=== PATIENT | female | born 1950 | race Caucasian/White ===

== ENCOUNTER 2019-06-15 16:59 | Emergency (ER) | payer OTHER ==
[~2019-06-15] VITALS: Ht 152.4 cm; Wt 66.2 kg
[2019-06-15 17:05] VITALS: Ht 152.4 cm; Wt 66.2 kg
[2019-06-15] MEDS ORDERED: MIDODRINE HCL2.5 M1 PO (17:38)
[2019-06-15] MEDS ORDERED: ELIQUIS5 MG PO (17:38)
[2019-06-15] MEDS ORDERED: LIPITOR40 MG PO (17:39)
[2019-06-15] MEDS ORDERED: LOPRESSOR50 M1 PO (17:39)
[2019-06-15] MEDS ORDERED: ENTRESTO1 TA2 PO (17:40)
[2019-06-15 18:58] LABS: BASOPHIL % 1.3 % (0-2)
[2019-06-15 19:09] LABS: PLATELET COUNT 97 x10^3mcL (130-400)
[2019-06-15 19:10] LABS: BILIRUBIN TOTAL 3.48 mg/dL (0.20-1.00); CALCIUM 7.5 mg/dL (8.5-10.1); CARBON DIOXIDE 30.6 mmol/L (21-32); POTASSIUM SERUM 4.1 mmol/L (3.5-5.1); TOTAL PROTEIN, SERUM 8.2 g/dL (6.4-8.2)
[2019-06-15 19:22] LABS: ALBUMIN 2.8 g/dL (3.4-5.0)
[2019-06-15 19:23] LABS: CREATININE SERUM 5.2 mg/dL (0.6-1.0)
[2019-06-15 20:35] VITALS: BP 107/79
== END 2019-06-15 20:35 | disposition home or self-care (01) ==
LOC: ED 16:59
PROVIDERS: Emergency Medicine
DX: S31.113A Laceration without foreign body of abdominal wall, right lower quadrant without penetration into peritoneal cavity, initial encounter (principal); I12.0 Hypertensive chronic kidney disease with stage 5 chronic kidney disease or end stage renal disease; N18.6 End stage renal disease; I50.9 Heart failure, unspecified; Z99.2 Dependence on renal dialysis; X58.XXXA Exposure to other specified factors, initial encounter; Y93.89 Activity, other specified; Y92.89 Other specified places as the place of occurrence of the external cause; Y99.8 Other external cause status
CPT/HCPCS: 36415; J2001

== ENCOUNTER 2019-06-21 11:27 | Emergency (ER) | payer OTHER ==
[~2019-06-21 11:27] MED LIST: ELIQUIS5 MG PO; ENTRESTO1 TA2 PO; LIPITOR40 MG PO; LOPRESSOR50 M1 PO; MIDODRINE HCL2.5 M1 PO
[2019-06-21 11:29] VITALS: BP 95/54
== END 2019-06-21 14:00 | disposition home or self-care (01) ==
LOC: ED 11:27
DX: S31.119D Laceration without foreign body of abdominal wall, unspecified quadrant without penetration into peritoneal cavity, subsequent encounter (principal); X58.XXXD Exposure to other specified factors, subsequent encounter